=== PATIENT | female | born 1980 | race Caucasian/White ===

== ENCOUNTER 2020-11-06 16:31 | Outpatient (CLI) | payer OTHER, SELFPAY | END 2020-11-06 16:32 | disposition home or self-care (01) | LOC: ANHCOVIDVC 16:31 | PROVIDERS: PCP Internal Medicine | DX: Z23 Encounter for immunization (principal) | CPT/HCPCS: 0001A; 91300 ==

== ENCOUNTER 2020-11-27 16:44 | Outpatient (CLI) | payer OTHER, SELFPAY | END 2020-11-27 16:45 | disposition home or self-care (01) | LOC: ANHCOVIDVC 16:44 | PROVIDERS: PCP Internal Medicine | DX: Z23 Encounter for immunization (principal) | CPT/HCPCS: 0002A; 91300 ==

== ENCOUNTER 2023-05-14 12:30 | Outpatient (CLI) | payer OTHER, SELFPAY ==
[2023-05-14 17:00] LABS: Basophils Absolute Auto 0.2 K/mm3 (0.0-0.1); Eosinophils Absolute Auto 0.4 K/mm3 (0-0.3); Eosinophils Percent Auto 4.9 % (0-4.4); Hematocrit 44.5 % (37.0-47.0); Hemoglobin 14.5 g/dL (12.0-15.0); Immature Granulocyte Absolute 0.02 K/mm3 (0.00-0.031); Immature Granulocyte Percent A 0.2 % (0-0.5); Lymphocytes Absolute Auto 2.08 K/mm3 (0.9-3.2); Lymphocytes Percent Auto 23.2 % (18.3-44.2); Mean Corpuscular HGB Conc 32.6 g/dl (32-36); Mean Corpuscular Hemoglobin 27.7 pg (26-34); Mean Corpuscular Volume 84.9 fl (80-100); Mean Platelet Volume 11.1 fl (7.4-10.4); Monocytes Percent Auto 10.7 % (2.6-8.5); Neutrophils Absolute Auto 5.3 K/mm3 (1.3-6.7); Platelet Count Result 327 k/mm3 (150-375); Red Blood Count 5.24 M/mm3 (4.2-5.4); Red Cell Distribution Width 14.3 % (11.5-14.5)
[2023-05-14 17:28] LABS: Alanine Aminotransferase 25 U/L (6-35); Albumin Level 3.8 g/dL (3.5-5.1); Alkaline Phosphatase 78 U/L (38-126); Anion Gap 7 mmol/L (8-16); Aspartate Amino Transferase 35 U/L (14-36); Bilirubin,Total 0.6 mg/dL (0.2-1.3); Blood Urea Nitrogen 7 mg/dL (7-17); Calcium 8.7 mg/dL (8.4-10.2); Carbon Dioxide 24 mmol/L (22-30); Chloride 106 mmol/L (98-107); Cholesterol 177 mg/dL (0-200); Estimated Glomerular Filt Rate > 60; Glucose 100 mg/dL (65-110); Potassium 3.7 mmol/L (3.4-5.0); Sodium 137 mmol/L (137-145); Triglycerides 92 mg/dL (<150)
[2023-05-14 17:38] LABS: Vitamin D 25 Hydroxy 15.5 ng/mL
[2023-05-14 17:52] LABS: LDL Cholesterol Direct 98 mg/dL
[2023-05-14 20:17] LABS: HDL Direct 44 mg/dL
== END 2023-05-14 12:31 | disposition home or self-care (01) ==
LOC: ANHGOSHLAB 12:32
PROVIDERS: PCP Family Medicine; Visit Provider Family Medicine
DX: Z13.228 Encounter for screening for other metabolic disorders (principal); Z13.220 Encounter for screening for lipoid disorders; Z13.29 Encounter for screening for other suspected endocrine disorder; E55.9 Vitamin D deficiency, unspecified; R53.83 Other fatigue
CPT/HCPCS: 36415; 80053; 80061; 82306; 84443; 85025

== ENCOUNTER 2023-05-19 14:14 | Outpatient (CLI) | payer OTHER, SELFPAY ==
--- NOTE | ~2023-05-19 | US_ITS ---
US thyroid INDICATION: Nontoxic thyroid goiter TECHNIQUE: Real-time sonographic images of the thyroid gland were obtained. COMPARISON: No prior studies for comparison. FINDINGS: The right thyroid lobe measures 5.4 x 2.6 x 2.1 cm. The left thyroid lobe measures 5.3 x 1 .9 x 1.5 cm. There is normal echotexture and echogenicity throughout the thyroid gland. There is an 8 mm right thyroid nodule which is solid, very hypoechoic, wider than tall, smoothly marginated and no echogenic foci, TR 4. Normal vascular flow is present. IMPRESSION: 1. Right thyroid nodule measuring 8 mm, TR 4, likely benign. Reviewed, dictated and finalized at location L.
== END 2023-05-19 14:15 ==
PROVIDERS: PCP Family Medicine; Visit Provider Family Medicine
DX: E04.9 Nontoxic goiter, unspecified (principal)
CPT/HCPCS: 76536

== ENCOUNTER 2023-10-14 10:42 | Outpatient (CLI) | payer OTHER, SELFPAY ==
--- NOTE | 2023-10-14 10:57 | ECHO_ITS ---
Patient Info Name: Julieta Anderson Age: 42 years : 1980 Gender: Female Ht: 66 in Wt: 245 lbs BSA: 2.33 m2 HR: 72 bpm BP: 112 / 87 mmHg Technical Quality: Fair Exam Date: 10/14/2023 12:06 PM Exam Location: Echo Lab Patient Status: Outpatient Admit Date: 10/14/2023 Staff Ordering Physician: Yogi Roca DO Remelt Sugar Boiler: Attending Provider: Yogi Roca DO Referring Physician: Chanelle CIFUENTES; Exam Type: CA echo doppler color flow Study Info Indications R06.09 - Other forms of dyspnea Complete two-dimensional, color flow and Doppler transthoracic echocardiogram is performed. Summary 1. Complete two-dimensional, color flow and Doppler transthoracic echocardiogram is performed. 2. Left ventricular chamber dimension is normal. 3. Left ventricular systolic function is normal, estimated at 60-65%. 4. The left ventricular diastolic function is normal. 5. E/e' 4 is not elevated. 6. There is trace tricuspid valve regurgitation. Left Ventricle E/e' 4 is not elevated. Left ventricular chamber dimension is normal. Left ventricular systolic function is normal, estimated at 60-65%. The left ventricular diastolic function is normal. Right Ventricle Right ventricular chamber dimension is normal. Right ventricular systolic function is normal. Left Atria Left atrial chamber dimension is normal. Right Atria Right atrial chamber dimension is normal. Aortic Valve The aortic valve is trileaflet. There is no aortic valve stenosis. There is no aortic valve regurgitation. Pulmonic Valve There is no pulmonic regurgitation. Mitral Valve There is no mitral valve stenosis. There is no mitral valve regurgitation. Tricuspid Valve RVSP is not calculated due to an inadequate TR jet. There is trace tricuspid valve regurgitation. Pericardium/Pleural There is no pericardial effusion. Inferior Vena Cava Normal inferior vena cava with >50% collapse upon inspiration consistent with normal right atrial pressure, 5 mmHg. Aorta The aortic root size at the sinus of Valsalva is normal. Left Ventricular Outflow Tract Name Value Normal LVOT 2D LVOT Diameter 2.0 cm LVOT Doppler LVOT Peak Gradient 2 mmHg LVOT Mean Gradient 1 mmHg LVOT VTI 16 cm LVOT VTI/AV VTI Ratio 0.6 LVOT Stroke Volume 51 ml LVOT CO 3.4 l/min LVOT CI 1.5 l/min/m2 Pulmonic Valve Name Value Normal PV Doppler PV Peak Gradient 5 mmHg Mitral Valve Name Value Normal MV Doppler MV Decel Lucas
--- NOTE | 2023-10-14 10:57 | EST_ITS ---
Patient Info Name: Julieta Anderson Age: 42 years : 1980 Gender: Female Ht: 66 in Wt: 245 lbs BSA: 2.33 m2 HR: 83 bpm BP: 105 / 77 mmHg Heart Rhythm: Sinus Rhythm Exam Date: 10/14/2023 11:29 AM Exam Location: Echo Lab Patient Status: Outpatient Admit Date: 10/14/2023 Staff Ordering Physician: Yogi Roca DO Attending Provider: Yogi Roca DO Exercise Technologist: Chloe Au CT Exercise Physician: Hai House DO Exam Type: CA stress test treadmill Study Info Indications R06.09 - Other forms of dyspnea A treadmill exercise stress test was performed. Summary 1. 1. Negative Jose exercise stress test for ischemic ST changes by ECG criteria. 2. 2. Reduced functional capacity, achieving 7 METs of workload. 3. 3. Appropriate HR response to exercise. 4. 4. Appropriate HR recovery at 1 minute post exercise. 5. 5. No imaging with stress testing. 6. 6. Patient informed of the above results. Protocol: Jose Stress ECG Details Stage: REST Duration (min): 1 min : 0 sec Speed (mph): 0.0 Grade (%): 0 HR (bpm): 80 SBP (mmHg): 105 DBP (mmHg): 77 METS: --- Stage: REST Duration (min): 6 min : 19 sec Speed (mph): 0.0 Grade (%): 0 HR (bpm): 96 SBP (mmHg): 105 DBP (mmHg): 77 METS: --- Stage: STAGE 1 Duration (min): 1 min : 0 sec Speed (mph): 1.7 Grade (%): 10 HR (bpm): 130 SBP (mmHg): 105 DBP (mmHg): 77 METS: --- Stage: STAGE 1 Duration (min): 2 min : 0 sec Speed (mph): 1.7 Grade (%): 10 HR (bpm): 143 SBP (mmHg): 105 DBP (mmHg): 77 METS: --- Stage: STAGE 1 Duration (min): 3 min : 0 sec Speed (mph): 1.7 Grade (%): 10 HR (bpm): 151 SBP (mmHg): 141 DBP (mmHg): 85 METS: --- Stage: STAGE 2 Duration (min): 1 min : 0 sec Speed (mph): 2.5 Grade (%): 12 HR (bpm): 158 SBP (mmHg): 141 DBP (mmHg): 85 METS: --- Stage: STAGE 2 Duration (min): 1 min : 30 sec Speed (mph): 2.5 Grade (%): 12 HR (bpm): 162 SBP (mmHg): 141 DBP (mmHg): 85 METS: --- Stage: RECOVERY Duration (min): 0 min : 29 sec Speed (mph): 0.0 Grade (%): 0 HR (bpm): 160 SBP (mmHg): 133 DBP (mmHg): 87 METS: --- Stage: RECOVERY Duration (min): 1 min : 29 sec Speed (mph): 0.0 Grade (%): 0 HR (bpm): 133 SBP (mmHg): 133 DBP (mmHg): 87 METS: --- Stage: RECOVERY Duration (min): 2 min : 29 sec Speed (mph): 0.0 Grade (%): 0 HR (bpm): 120 SBP (mmHg): 133 DBP (mmHg): 87 METS: --- Stage: RECOVERY Duration (min): 3 min : 29 sec Speed (mph): 0.0 Grade (%): 0 HR (bpm): 112 SBP (mmHg): 133 DBP (mmHg): 87 METS: --- Stage: RECOVERY Duration (min): 4 min : 3 sec Speed (mph): 0.0 Grade (%): 0 HR (bpm): 108 SBP (mmHg): 118 DBP (mmHg): 90 METS: --- Rest HR: 96 bpm Peak HR: 162 bpm Rest Sys BP: 105 mmHg Peak Sys BP: 141 mmHg Max Pred HR: 176 bpm % Max Pred HR: 92 % Target HR: 150 bpm Max RPP:
== END 2023-10-14 10:43 | disposition home or self-care (01) ==
PROVIDERS: PCP Family Medicine; Visit Provider Family Medicine
DX: R06.09 Other forms of dyspnea (principal)
CPT/HCPCS: 93017; 93306